=== PATIENT | female | born 1985 | race Caucasian/White ===

== ENCOUNTER 2017-08-15 11:55 | Emergency (ER) | payer OTHER ==
[2017-08-15 12:20] VITALS: BP 112/59; PULSE 63; RESP 14; TEMP 98.9; O2SAT 98
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
== END 2017-08-15 14:13 | disposition left against medical advice (07) ==
LOC: NED 11:55
DX: M54.2 Cervicalgia (principal)
CPT/HCPCS: 99281